=== PATIENT | female | born 1975 | race Two or more races ===

== ENCOUNTER 2018-02-27 09:16 | Outpatient (CLI) | payer OTHER ==
[~2018-02-27 09:16] MED LIST: HYDRO PO; IBUPROFEN800 MG PO; LISINOPRIL5 MG PO; NORVASC10 MG PO; ORPH100T PO
[2018-02-27] MEDS ORDERED: PERCOCET 10-321 EACH PO (10:53)
== END 2018-02-27 10:00 | disposition home or self-care (01) ==
LOC: NUCLEAR 09:16
DX: I82.629 Acute embolism and thrombosis of deep veins of unspecified upper extremity (principal); C50.411 Malignant neoplasm of upper-outer quadrant of right female breast

== ENCOUNTER → 2018-06-21 | Emergency (ER) | payer OTHER ==
[~2018-06-21] VITALS: Ht 160 cm; Wt 62.1 kg
[~2018-06-21] MED LIST changes: +PERCOCET 10-321 EACH PO
== END | disposition home or self-care (01) ==
LOC: ER 11:44
DX: K29.70 Gastritis, unspecified, without bleeding (principal); R18.8 Other ascites

== ENCOUNTER → 2018-06-27 | Emergency (ER) | payer OTHER ==
[~2018-06-27] VITALS: Ht 157.5 cm; Wt 54.4 kg
== END | disposition designated cancer center or children's hospital (05) ==
LOC: ER 14:49
DX: E80.7 Disorder of bilirubin metabolism, unspecified (principal); R18.8 Other ascites; E86.0 Dehydration; R11.11 Vomiting without nausea